=== PATIENT | male | born 1955 | race Caucasian/White ===

== ENCOUNTER 2016-11-01 11:08 | Emergency (ER) | payer BC ==
[~2016-11-01] VITALS: Ht 162.6 cm; Wt 72.6 kg
[2016-11-01 11:08] VITALS: BP_SYST 116
[~2016-11-01 11:08] MED LIST: LEVE500T13 PO; PHEN100C4 PO; THIA100T13 PO
[2016-11-01] MEDS: NACL 0.9% 1,000 ML IV ONE (11:51)
[2016-11-01 12:01] LABS: BASOPHILS # (AUTO) 0.1 K/uL (0.0-0.2); BASOPHILS % (AUTO) 1.1 % (0.0-2.0); EOSINOPHILS % (AUTO) 0.7 % (0.0-4.0); HEMATOCRIT 40.5 % (36-54); HEMOGLOBIN 13.7 g/dL (14.0-18.0); LYMPHOCYTES # (AUTO) 1.2 K/uL (1.0-5.5); LYMPHOCYTES % (AUTO) 21.3 % (20.5-51.5); MEAN CORPUSCULAR HEMOGLOBIN 34 pg (27-31); MEAN CORPUSCULAR HGB CONC 34 % (32-36); MEAN CORPUSCULAR VOLUME 99 fL (79.0-98.0); MONOCYTES # (AUTO) 0.4 K/uL (0.0-1.0); MONOCYTES % (AUTO) 6.7 % (1.7-9.3); NEUTROPHILS # (AUTO) 4.1 K/uL (1.8-7.7); NEUTROPHILS % (AUTO) 70.2 % (40.0-70.0); PLATELET COUNT (AUTO) 271 K/uL (130-430); RED BLOOD CELL COUNT(AUTO) 4.08 MIL/uL (4.2-6.2); RED CELL DISTRIBUTION WIDTH 12.7 % (9.0-15.0); WHITE BLOOD COUNT (AUTO) 5.8 K/uL (4.8-10.8)
[2016-11-01 12:06] LABS: CALCIUM 8.7 mg/dL (8.4-11.0); CREATININE 1.02 mg/dL (0.55-1.30); POTASSIUM 3.7 mmol/L (3.5-5.1)
[2016-11-01 12:09] LABS: PROTHROMBIN TIME 10.5 SECS (9.5-12.5)
[2016-11-01 12:11] LABS: ALBUMIN 3.5 g/dL (3.4-4.8); PHENYTOIN (DILANTIN) 24.9 ug/mL (10.0-20.0); TOTAL BILIRUBIN 0.2 mg/dL (0.0-1.0); TOTAL PROTEIN, SERUM 6.4 g/dL (6.4-8.3)
[2016-11-01 12:49] VITALS: BP_SYST 140
== END 2016-11-01 12:49 | disposition home or self-care (01) ==
LOC: SED 11:08
DX: G40.802 Other epilepsy, not intractable, without status epilepticus (principal); F10.129 Alcohol abuse with intoxication, unspecified; M79.672 Pain in left foot; M25.572 Pain in left ankle and joints of left foot; J44.9 Chronic obstructive pulmonary disease, unspecified; K21.9 Gastro-esophageal reflux disease without esophagitis
CPT/HCPCS: 36415; 73610; 73630; 80053; 80185; 82150; 83690; 85025; 85610; 85730; 96360; 99285; G0482; J7030

== ENCOUNTER 2018-03-12 17:53 | Emergency (ER) | payer BC ==
[~2018-03-12] VITALS: Ht 182.9 cm; Wt 63.5 kg
[~2018-03-12 17:53] MED LIST changes: -LEVE500T13 PO; +LEVE500T9 PO
[2018-03-12 18:26] VITALS: BP_SYST 124
--- NOTE | 2018-03-12 18:29 | NUR ---
Patient to ER bed 03 to gown for evaluation. Side rails up.
--- NOTE | 2018-03-12 18:32 | NUR ---
Patient brought in BLS complaining of right hip pain radiating down leg, generalized weakness and dizziness. Pain 8/10. History for Sciatica. Was seen and discharged at [facility]. Reports having seizures but has been seeing PMD. No other complaints/injuries per patient or as noted. Will continue to monitor.
--- NOTE | 2018-03-12 18:49 | NUR ---
ER Dr. Melvin at bedside examining patient.
[2018-03-12] MEDS ORDERED: KETOROLAC TROMETHAMINE 15 MG VIAL IVP ONE (19:00)
[2018-03-12] MEDS ORDERED: LORazepam 2 MG/ML VIAL (FOR ER USE) IVP ONE (19:00)
--- NOTE | 2018-03-12 19:33 | NUR ---
Pt is resting quietly in bed, no acute distress noted. Will continue to monitor.
[2018-03-12 19:44] LABS: BARBITURATE, URINE POSITIVE (NEG <=200); BENZODIAZEPINE, URINE NEGATIVE (NEG <=150); CANNABINOID, URINE NEGATIVE (NEG <=50); COCAINE, URINE NEGATIVE (NEG <=150); METHAMPHETAMINES SCREEN,URINE NEGATIVE (NEG <=500); OPIATE, URINE NEGATIVE (NEG <=100); PHENCYCLIDINE SCREEN,URINE NEGATIVE (NEG <=25); UR TRICYCLIC ANTIDEPRESSANTS NEGATIVE (NEG <=300); URINE AMPHETAMINE NEGATIVE (NEG <=500); URINE METHADONE NEGATIVE (NEG <=200); URINE OXYCODONE SCREEN NEGATIVE (NEG <=100); URINE PROPOXYPHENE SCREEN NEGATIVE (NEG <=300)
[2018-03-12 19:50] LABS: PHENYTOIN (DILANTIN) 20.1 ug/mL (10.0-20.0)
--- NOTE | 2018-03-12 20:00 | NUR ---
Pt is resting quietly in bed, no acute distress noted at this time. Will continue to monitor.
--- NOTE | 2018-03-12 21:36 | NUR ---
Pt is sleeping in bed, no acute distress noted. Will continue to monitor.
[2018-03-12 22:28] VITALS: BP_SYST 124
== END 2018-03-12 22:27 | disposition home or self-care (01) ==
LOC: SED 17:53
DX: G40.909 Epilepsy, unspecified, not intractable, without status epilepticus (principal); F10.10 Alcohol abuse, uncomplicated; K21.9 Gastro-esophageal reflux disease without esophagitis; J44.9 Chronic obstructive pulmonary disease, unspecified; R03.0 Elevated blood-pressure reading, without diagnosis of hypertension; Y90.6 Blood alcohol level of 120-199 mg/100 ml
CPT/HCPCS: 36415; 80185; 80307; 96374; 96375; 99283; G0482; J1885; J2060

== ENCOUNTER 2018-03-16 08:42 | Inpatient (IN) | payer BC ==
[~2018-03-16] VITALS: Ht 182.9 cm; Wt 63.5 kg
[2018-03-16 08:48] VITALS: BP_SYST 123
[2018-03-16] MEDS ORDERED: NACL 0.9% 1,000 ML IV ONE (08:59)
[2018-03-16] MEDS ORDERED: ONDANSETRON HCL 4 MG/2 ML VIAL IVP ONE (09:00)
[2018-03-16 09:28] LABS: HEMATOCRIT 46.7 % (36-54); HEMOGLOBIN 15.8 g/dL (14.0-18.0); RED BLOOD CELL COUNT(AUTO) 4.61 MIL/uL (4.2-6.2); WHITE BLOOD COUNT (AUTO) 8.6 K/uL (4.8-10.8)
[2018-03-16 09:29] LABS: BASOPHILS # (AUTO) 0.1 K/uL (0.0-0.2); BASOPHILS % (AUTO) 0.8 % (0.0-2.0); EOSINOPHILS # (AUTO) 0.1 K/uL (0.0-0.4); EOSINOPHILS % (AUTO) 1.3 % (0.0-4.0); LYMPHOCYTES # (AUTO) 0.9 K/uL (1.0-5.5); LYMPHOCYTES % (AUTO) 10.4 % (20.5-51.5); MEAN CORPUSCULAR HEMOGLOBIN 34 pg (27-31); MEAN CORPUSCULAR HGB CONC 34 % (32-36); MEAN CORPUSCULAR VOLUME 101 fL (79.0-98.0); MONOCYTES % (AUTO) 11.5 % (1.7-9.3); NEUTROPHILS # (AUTO) 6.5 K/uL (1.8-7.7); PLATELET COUNT (AUTO) 239 K/uL (130-430)
[2018-03-16] MEDS ORDERED: FOLIC ACID 1 MG, THIAMINE HCL 100 MG, MAGNESIUM SULFATE 1 GM, MVI 10 ML in NACL 0.9% 1,... IV ONE (09:30)
[2018-03-16 09:37] LABS: BILIRUBIN,URINE NEGATIVE (NEGATIVE); BLOOD, URINE NEGATIVE (NEGATIVE); CLARITY/URINE CLEAR (CLEAR); COLOR,URINE YELLOW (YELLOW); GLUCOSE,URINE NEGATIVE (NEGATIVE); KETONES,URINE NEGATIVE (NEGATIVE); LEUKOCYTE ESTERASE ,URINE NEGATIVE (NEGATIVE); NITRITE, URINE NEGATIVE (NEGATIVE); PH,URINE 5.5 (5.0-8.0); PROTEIN URINE NEGATIVE (NEGATIVE); UROBILINOGEN,URINE 0.2 (0.2-1.0)
[2018-03-16 10:01] LABS: BARBITURATE, URINE POSITIVE (NEG <=200); BENZODIAZEPINE, URINE NEGATIVE (NEG <=150); CANNABINOID, URINE NEGATIVE (NEG <=50); COCAINE, URINE NEGATIVE (NEG <=150); METHAMPHETAMINES SCREEN,URINE NEGATIVE (NEG <=500); OPIATE, URINE NEGATIVE (NEG <=100); PHENCYCLIDINE SCREEN,URINE NEGATIVE (NEG <=25); URINE AMPHETAMINE NEGATIVE (NEG <=500); URINE METHADONE NEGATIVE (NEG <=200); URINE OXYCODONE SCREEN NEGATIVE (NEG <=100); URINE PROPOXYPHENE SCREEN NEGATIVE (NEG <=300)
[2018-03-16 10:02] LABS: UR TRICYCLIC ANTIDEPRESSANTS NEGATIVE (NEG <=300)
[2018-03-16 10:05] LABS: ANION GAP 12 (5-15); CHLORIDE 100 mmol/L (98-107); GLUCOSE 100 mg/dL (70-99); POTASSIUM 3.5 mmol/L (3.5-5.1); SODIUM SERUM 138 mmol/L (136-145); UREA NITROGEN, BLOOD 13 mg/dL (8-21)
[2018-03-16 10:06] LABS: GFR AFRICAN AMERICAN 97 mL/min (>90)
[2018-03-16 10:09] LABS: ALANINE AMINOTRANSFERASE 34 U/L (12-78); ALBUMIN 3.9 g/dL (3.4-4.8); ALCOHOL, BLOOD 169 mg/dL (<10); AMYLASE 59 U/L (0-100); ASPARTATE AMINOTRANSFERASE 28 U/L (10-37); LIPASE 131 U/L (73-393); TOTAL BILIRUBIN 0.3 mg/dL (0.0-1.0)
[2018-03-16 10:14] LABS: INR 0.9 (0.80-1.20); PROTHROMBIN TIME 9.5 SECS (9.5-12.5)
[2018-03-16 11:09] LABS: ACETAMINOPHEN < 1 ug/mL (1-30)
[2018-03-16] MEDS ORDERED: LORazepam 2 MG/ML VIAL IVP PRN (13:45)
[2018-03-16 14:10] VITALS: BP_SYST 113
[2018-03-16] MEDS ORDERED: BANANA BAG 1 EA, FOLIC ACID 1 MG, THIAMINE HCL 100 MG, MAGNESIUM SULFATE 1 GM, MVI 10 M... IV SCH ×5 (15:00)
[2018-03-16 15:43] VITALS: BP_SYST 124
[2018-03-16] MEDS: D5/0.45 NS 1,000 ML IV SCH (16:03)
[2018-03-16 19:00] VITALS: BP_SYST 134
[2018-03-16 20:00] VITALS: BP_SYST 139
[2018-03-17] MEDS: D5/0.45 NS 1,000 ML IV SCH ×2 (03:05→13:32)
[2018-03-17 03:46] VITALS: BP_SYST 134
[2018-03-17 07:36] VITALS: BP_SYST 103
[2018-03-17] MEDS: BANANA BAG 1 EA, FOLIC ACID 1 MG, THIAMINE HCL 100 MG, MAGNESIUM SULFATE 1 GM, MVI 10 M... IV SCH ×5 (09:26)
[2018-03-17] MEDS ORDERED: PHENYTOIN 100 MG CAPSULE PO ONE (11:15)
[2018-03-17 12:44] VITALS: BP_SYST 117
[2018-03-17 15:44] VITALS: BP_SYST 138
[2018-03-17] MEDS: PHENYTOIN 100 MG CAPSULE PO SCH (21:15)
[2018-03-17 22:03] VITALS: BP_SYST 127
[2018-03-18] VITALS: BP_SYST 129
[2018-03-18] MEDS: D5/0.45 NS 1,000 ML IV SCH ×2 (02:49→09:30)
[2018-03-18 08:00] VITALS: BP_SYST 148
[2018-03-18] MEDS: BANANA BAG 1 EA, FOLIC ACID 1 MG, THIAMINE HCL 100 MG, MAGNESIUM SULFATE 1 GM, MVI 10 M... IV SCH ×5 (09:30)
[2018-03-18] MEDS: PHENYTOIN 100 MG CAPSULE PO SCH (09:30)
[2018-03-18 12:00] VITALS: BP_SYST 158
== END 2018-03-18 12:41 | disposition left against medical advice (07) | DRG 101 ==
LOC: SED 08:42 → STU 13:41 → SMU 03-17 10:36
PROVIDERS: ADMIT Internal Medicine Hospice and Palliative Medicine; ATTEND Internal Medicine Hospice and Palliative Medicine
DX: G40.509 Epileptic seizures related to external causes, not intractable, without status epilepticus (principal); F10.129 Alcohol abuse with intoxication, unspecified; Z53.21 Procedure and treatment not carried out due to patient leaving prior to being seen by health care provider; T42.0X5A Adverse effect of hydantoin derivatives, initial encounter; Z87.820 Personal history of traumatic brain injury; Y92.89 Other specified places as the place of occurrence of the external cause
CPT/HCPCS: 36415; 71045; 80053; 80185-TC; 80307; 81003; 82150-TC; 82550-TC; 83690-TC; 84484; 85025; 85610-TC; 85730-TC; 93005; 96361; 96374; 99285; G0378; G0480; G0482; J2405; J3411; J3475; J3490; J7030

== ENCOUNTER 2018-03-23 11:27 | Inpatient (IN) | payer BC ==
[~2018-03-23] VITALS: Ht 182.9 cm; Wt 59.1 kg
[~2018-03-23 11:27] MED LIST changes: -LEVE500T9 PO; -THIA100T13 PO
[2018-03-23] MEDS ORDERED: LORazepam 2 MG/ML VIAL (FOR ER USE) IVP ONE (11:30)
[2018-03-23 11:39] VITALS: BP_SYST 133
[2018-03-23 12:04] LABS: CREATININE 1.11 mg/dL (0.55-1.30); POTASSIUM 4.4 mmol/L (3.5-5.1)
[2018-03-23 12:10] LABS: ALBUMIN 3.4 g/dL (3.4-4.8); TOTAL BILIRUBIN 0.2 mg/dL (0.0-1.0)
[2018-03-23 13:15] LABS: BASOPHILS # (AUTO) 0.1 K/uL (0.0-0.2); BASOPHILS % (AUTO) 1.7 % (0.0-2.0); EOSINOPHILS # (AUTO) 0.1 K/uL (0.0-0.4); EOSINOPHILS % (AUTO) 0.8 % (0.0-4.0); HEMATOCRIT 39.4 % (36-54); LYMPHOCYTES # (AUTO) 1.4 K/uL (1.0-5.5); LYMPHOCYTES % (AUTO) 22.4 % (20.5-51.5); MEAN CORPUSCULAR HEMOGLOBIN 34 pg (27-31); MEAN CORPUSCULAR HGB CONC 33 % (32-36); MEAN CORPUSCULAR VOLUME 101 fL (79.0-98.0); MONOCYTES # (AUTO) 0.6 K/uL (0.0-1.0); NEUTROPHILS # (AUTO) 4.2 K/uL (1.8-7.7); NEUTROPHILS % (AUTO) 66.1 % (40.0-70.0); PLATELET COUNT (AUTO) 274 K/uL (130-430); RED BLOOD CELL COUNT(AUTO) 3.89 MIL/uL (4.2-6.2); RED CELL DISTRIBUTION WIDTH 12.2 % (9.0-15.0); WHITE BLOOD COUNT (AUTO) 6.4 K/uL (4.8-10.8)
[2018-03-23 13:28] LABS: PROTHROMBIN TIME 9.8 SECS (9.5-12.5)
[2018-03-23 14:34] LABS: BARBITURATE, URINE POSITIVE (NEG <=200); BENZODIAZEPINE, URINE NEGATIVE (NEG <=150); CANNABINOID, URINE NEGATIVE (NEG <=50); COCAINE, URINE NEGATIVE (NEG <=150); METHAMPHETAMINES SCREEN,URINE NEGATIVE (NEG <=500); OPIATE, URINE NEGATIVE (NEG <=100); PHENCYCLIDINE SCREEN,URINE NEGATIVE (NEG <=25); UR TRICYCLIC ANTIDEPRESSANTS NEGATIVE (NEG <=300); URINE AMPHETAMINE NEGATIVE (NEG <=500); URINE METHADONE NEGATIVE (NEG <=200); URINE OXYCODONE SCREEN NEGATIVE (NEG <=100); URINE PROPOXYPHENE SCREEN NEGATIVE (NEG <=300)
[2018-03-23] MEDS ORDERED: D5NS 1,000 ML IV SCH (15:45)
[2018-03-23] MEDS ORDERED: LORazepam 2 MG/ML VIAL IM PRN (16:00)
[2018-03-23 16:40] VITALS: BP_SYST 127
[2018-03-23] MEDS: BANANA BAG 1 EA, FOLIC ACID 1 MG, THIAMINE HCL 100 MG, MAGNESIUM SULFATE 1 GM, MVI 10 M... IV SCH ×5 (17:01)
[2018-03-23 19:49] VITALS: BP_SYST 134
[2018-03-23] MEDS: NACL 0.9% 1,000 ML IV SCH (20:43)
[2018-03-23] MEDS ORDERED: PHENYTOIN 100 MG CAPSULE PO ONE (23:55)
[2018-03-24 02:10] VITALS: BP_SYST 120
[2018-03-24 08:00] VITALS: BP_SYST 128
[2018-03-24] MEDS: NACL 0.9% 1,000 ML IV SCH (09:50)
[2018-03-24 12:00] VITALS: BP_SYST 120
[2018-03-24 16:00] VITALS: BP_SYST 107
[2018-03-24] MEDS: BANANA BAG 1 EA, FOLIC ACID 1 MG, THIAMINE HCL 100 MG, MAGNESIUM SULFATE 1 GM, MVI 10 M... IV SCH ×5 (16:09)
[2018-03-24 20:10] VITALS: BP_SYST 131
[2018-03-24] MEDS ORDERED: PHENYTOIN 100 MG CAPSULE PO SCH (21:00)
[2018-03-25] VITALS: BP_SYST 135
[2018-03-25] MEDS: NACL 0.9% 1,000 ML IV SCH (02:30)
[2018-03-25 07:55] VITALS: BP_SYST 138
[2018-03-25 10:54] VITALS: BP_SYST 138
[2018-03-25 11:38] VITALS: BP_SYST 136
== END 2018-03-25 11:30 | disposition home or self-care (01) | DRG 918 ==
LOC: SED 11:27 → SMU 15:45
PROVIDERS: ADMIT Internal Medicine Hospice and Palliative Medicine; ATTEND Internal Medicine Hospice and Palliative Medicine
DX: T42.3X1A Poisoning by barbiturates, accidental (unintentional), initial encounter (principal); F10.10 Alcohol abuse, uncomplicated; G40.909 Epilepsy, unspecified, not intractable, without status epilepticus; J44.9 Chronic obstructive pulmonary disease, unspecified; K21.9 Gastro-esophageal reflux disease without esophagitis; Y92.89 Other specified places as the place of occurrence of the external cause
CPT/HCPCS: 36415; 70450-TC; 71045; 80053; 80184-TC; 80185-TC; 80307; 82150-TC; 82962; 83690-TC; 84484; 85025; 85610-TC; 85730-TC; 87081; 96374; 99285; G0482; J2060; J3411; J3475; J3490; J7030; J7050

== ENCOUNTER 2018-05-29 09:12 | Emergency (ER) | payer BC ==
[~2018-05-29] VITALS: Ht 177.8 cm; Wt 68.0 kg
[2018-05-29 09:18] VITALS: BP_SYST 130
[2018-05-29] MEDS ORDERED: LORazepam 2 MG/ML VIAL (FOR ER USE) IM ONE (09:30)
[2018-05-29 10:33] LABS: BILIRUBIN,URINE NEGATIVE (NEGATIVE); BLOOD, URINE NEGATIVE (NEGATIVE); CLARITY/URINE CLEAR (CLEAR); COLOR,URINE YELLOW (YELLOW); GLUCOSE,URINE NEGATIVE (NEGATIVE); KETONES,URINE NEGATIVE (NEGATIVE); LEUKOCYTE ESTERASE ,URINE NEGATIVE (NEGATIVE); NITRITE, URINE NEGATIVE (NEGATIVE); PROTEIN URINE NEGATIVE (NEGATIVE); UROBILINOGEN,URINE 0.2 (0.2-1.0)
[2018-05-29 10:45] LABS: RED BLOOD CELL COUNT(AUTO) 4.29 MIL/uL (4.2-6.2); WHITE BLOOD COUNT (AUTO) 5.4 K/uL (4.8-10.8)
[2018-05-29 10:46] LABS: BASOPHILS % (AUTO) 1.3 % (0.0-2.0); EOSINOPHILS % (AUTO) 1.6 % (0.0-4.0); HEMATOCRIT 44.1 % (36-54); HEMOGLOBIN 14.8 g/dL (14.0-18.0); LYMPHOCYTES # (AUTO) 1.1 K/uL (1.0-5.5); LYMPHOCYTES % (AUTO) 21.2 % (20.5-51.5); MEAN CORPUSCULAR HEMOGLOBIN 34 pg (27-31); MEAN CORPUSCULAR HGB CONC 34 % (32-36); MEAN CORPUSCULAR VOLUME 103 fL (79.0-98.0); MONOCYTES % (AUTO) 9.5 % (1.7-9.3); NEUTROPHILS # (AUTO) 3.5 K/uL (1.8-7.7); NEUTROPHILS % (AUTO) 66.4 % (40.0-70.0); PLATELET COUNT (AUTO) 239 K/uL (130-430); RED CELL DISTRIBUTION WIDTH 13.5 % (9.0-15.0)
[2018-05-29 10:47] LABS: BASOPHILS # (AUTO) 0.1 K/uL (0.0-0.2); EOSINOPHILS # (AUTO) 0.1 K/uL (0.0-0.4); MONOCYTES # (AUTO) 0.5 K/uL (0.0-1.0)
[2018-05-29 10:52] LABS: BARBITURATE, URINE POSITIVE (NEG <=200); BENZODIAZEPINE, URINE NEGATIVE (NEG <=150); CANNABINOID, URINE NEGATIVE (NEG <=50); COCAINE, URINE NEGATIVE (NEG <=150); METHAMPHETAMINES SCREEN,URINE NEGATIVE (NEG <=500); OPIATE, URINE NEGATIVE (NEG <=100); PHENCYCLIDINE SCREEN,URINE NEGATIVE (NEG <=25); UR TRICYCLIC ANTIDEPRESSANTS NEGATIVE (NEG <=300); URINE AMPHETAMINE NEGATIVE (NEG <=500); URINE METHADONE NEGATIVE (NEG <=200); URINE OXYCODONE SCREEN NEGATIVE (NEG <=100); URINE PROPOXYPHENE SCREEN NEGATIVE (NEG <=300)
[2018-05-29 10:56] LABS: CALCIUM 8.6 mg/dL (8.4-11.0); CREATININE 0.98 mg/dL (0.55-1.30); POTASSIUM 4.2 mmol/L (3.5-5.1)
[2018-05-29 11:00] LABS: PROTHROMBIN TIME 10.5 SECS (9.5-12.5)
[2018-05-29 11:13] LABS: ALBUMIN 3.8 g/dL (3.4-4.8); TOTAL BILIRUBIN 0.3 mg/dL (0.0-1.0)
[2018-05-29 13:40] VITALS: BP_SYST 121
== END 2018-05-29 11:59 | disposition home or self-care (01) ==
LOC: MERGE 09:12 → SED 09:12
DX: F10.20 Alcohol dependence, uncomplicated (principal); F31.9 Bipolar disorder, unspecified; R03.0 Elevated blood-pressure reading, without diagnosis of hypertension; F17.200 Nicotine dependence, unspecified, uncomplicated; Y90.6 Blood alcohol level of 120-199 mg/100 ml
CPT/HCPCS: 36415; 70450; 71045; 80053; 80307; 81003; 83605; 85025; 85610; 87040; 93005; 96372; 99284; G0482; J2060

== ENCOUNTER 2019-08-04 16:02 | Emergency (ER) | payer BC, SELFPAY ==
[~2019-08-04] VITALS: Ht 182.9 cm; Wt 68.0 kg
[2019-08-04 16:10] VITALS: BP_SYST 137
[2019-08-04] MEDS ORDERED: NACL 0.9% 1,000 ML IV ONE (16:45)
[2019-08-04] MEDS ORDERED: KETOROLAC TROMETHAMINE 30 MG VIAL IVP ONE (16:45)
[2019-08-04 17:21] LABS: BASOPHILS # (AUTO) 0.1 K/uL (0.0-0.2); EOSINOPHILS # (AUTO) 0.2 K/uL (0.0-0.4); EOSINOPHILS % (AUTO) 2.3 % (0.0-4.0); HEMATOCRIT 42.8 % (36-54); HEMOGLOBIN 14.4 g/dL (14.0-18.0); LYMPHOCYTES # (AUTO) 2.7 K/uL (1.0-5.5); MEAN CORPUSCULAR HEMOGLOBIN 33 pg (27-31); MEAN CORPUSCULAR HGB CONC 34 % (32-36); MEAN CORPUSCULAR VOLUME 98 fL (79.0-98.0); MONOCYTES # (AUTO) 0.7 K/uL (0.0-1.0); MONOCYTES % (AUTO) 8.1 % (1.7-9.3); NEUTROPHILS # (AUTO) 4.5 K/uL (1.8-7.7); NEUTROPHILS % (AUTO) 55.6 % (40.0-70.0); PLATELET COUNT (AUTO) 271 K/uL (130-430); RED BLOOD CELL COUNT(AUTO) 4.37 MIL/uL (4.2-6.2); RED CELL DISTRIBUTION WIDTH 13.3 % (9.0-15.0); WHITE BLOOD COUNT (AUTO) 8.1 K/uL (4.8-10.8)
[2019-08-04 17:40] LABS: ANION GAP 9 (5-15); CALCIUM 8.2 mg/dL (8.4-11.0); CHLORIDE 105 mmol/L (98-107); CREATININE 1.11 mg/dL (0.55-1.30); GLUCOSE 84 mg/dL (70-99); SODIUM SERUM 142 mmol/L (136-145); UREA NITROGEN, BLOOD 13 mg/dL (8-21)
[2019-08-04 17:46] LABS: GFR AFRICAN AMERICAN 86 mL/min (>90)
[2019-08-04 17:48] LABS: ALANINE AMINOTRANSFERASE 26 U/L (12-78); ALBUMIN 3.6 g/dL (3.4-4.8); ALCOHOL, BLOOD 57 mg/dL (<10); ASPARTATE AMINOTRANSFERASE 19 U/L (10-37); LIPASE 134 U/L (73-393); TOTAL BILIRUBIN 0.2 mg/dL (0.0-1.0)
[2019-08-04 18:24] LABS: BILIRUBIN,URINE NEGATIVE (NEGATIVE); BLOOD, URINE NEGATIVE (NEGATIVE); CLARITY/URINE CLEAR (CLEAR); GLUCOSE,URINE NEGATIVE (NEGATIVE); KETONES,URINE NEGATIVE (NEGATIVE); LEUKOCYTE ESTERASE ,URINE NEGATIVE (NEGATIVE); NITRITE, URINE NEGATIVE (NEGATIVE); PROTEIN URINE NEGATIVE (NEGATIVE); UROBILINOGEN,URINE 0.2 (0.2-1.0)
[2019-08-04 18:28] LABS: COLOR,URINE STRAW (YELLOW)
[2019-08-04 18:34] LABS: BARBITURATE, URINE POSITIVE (NEG <=200); BENZODIAZEPINE, URINE NEGATIVE (NEG <=150); CANNABINOID, URINE NEGATIVE (NEG <=50); COCAINE, URINE NEGATIVE (NEG <=150); METHAMPHETAMINES SCREEN,URINE NEGATIVE (NEG <=500); OPIATE, URINE NEGATIVE (NEG <=100); PHENCYCLIDINE SCREEN,URINE NEGATIVE (NEG <=25); UR TRICYCLIC ANTIDEPRESSANTS NEGATIVE (NEG <=300); URINE AMPHETAMINE NEGATIVE (NEG <=500); URINE METHADONE NEGATIVE (NEG <=200); URINE OXYCODONE SCREEN NEGATIVE (NEG <=100); URINE PROPOXYPHENE SCREEN NEGATIVE (NEG <=300)
[2019-08-04 19:05] VITALS: BP_SYST 136
== END 2019-08-04 19:05 | disposition home or self-care (01) ==
LOC: SED 16:02
DX: R06.02 Shortness of breath (principal); F10.129 Alcohol abuse with intoxication, unspecified; J44.9 Chronic obstructive pulmonary disease, unspecified; K21.9 Gastro-esophageal reflux disease without esophagitis; F17.210 Nicotine dependence, cigarettes, uncomplicated; Z20.828 Contact with and (suspected) exposure to other viral communicable diseases
CPT/HCPCS: 36415; 71045; 80053; 80307; 81003; 83605; 83690; 83880; 84484; 85025; 86710; 87040; 87086; 93005; 96374; 99285; G0482; J1885; J7030; U0002

== ENCOUNTER 2020-10-13 10:14 | Inpatient (IN) | payer BC, SELFPAY ==
[~2020-10-13] VITALS: Ht 182.9 cm; Wt 68.0 kg
[2020-10-13 10:18] VITALS: BP_SYST 132
--- NOTE | 2020-10-13 10:23 | NUR ---
Patient to ER bed 3 to gown for evaluation. Side rails up. Report given to Meron Nj
[2020-10-13] MEDS ORDERED: NACL 0.9% 1,000 ML IV ONE (10:30)
[2020-10-13] MEDS ORDERED: LORazepam 2 MG/ML VIAL IVP ONE (10:30)
--- NOTE | 2020-10-13 10:34 | NUR ---
Pt BIBA after being found in his front yard by neighbors. Per ems pt was noted to be having a sezire x1 min. Pt is alert to self and place. Pt states he has history of seizures and takes Dilantin at home. Pt states he drank "a few shots" last night and he does not remember anything else. Pt has generalized weakness but able to move all extremities equal, Perrla, no slurred speech or facial droop noted.
--- NOTE | 2020-10-13 10:36 | NUR ---
Blood collected and sent to lab.
--- NOTE | 2020-10-13 10:36 | NUR ---
# 20 gauge angiocath placed to LFA. Use of asceptic technique. Opsite placed over site. Blood return noted. Blood for lab drawn from site. Flushed with 10 cc of normal saline. No evidence of infiltration noted. Patient tolerated well.
--- NOTE | 2020-10-13 10:37 | NUR ---
X-ray at bedside.
--- NOTE | 2020-10-13 10:45 | NUR ---
MICHELLE Cabrales at bedside examining patient.
--- NOTE | 2020-10-13 10:46 | NUR ---
pt taken to ct in stable condition.
[2020-10-13 10:50] LABS: BASOPHILS % (AUTO) 0.4 % (0.0-2.0); EOSINOPHILS # (AUTO) 0.1 K/uL (0.0-0.4); EOSINOPHILS % (AUTO) 1.7 % (0.0-4.0); HEMATOCRIT 42.9 % (36-54); HEMOGLOBIN 14.5 g/dL (14.0-18.0); LYMPHOCYTES # (AUTO) 1.8 K/uL (1.0-5.5); LYMPHOCYTES % (AUTO) 29.9 % (20.5-51.5); MEAN CORPUSCULAR HEMOGLOBIN 33 pg (27-31); MEAN CORPUSCULAR HGB CONC 34 % (32-36); MEAN CORPUSCULAR VOLUME 98 fL (79.0-98.0); MONOCYTES # (AUTO) 0.6 K/uL (0.0-1.0); MONOCYTES % (AUTO) 9.7 % (1.7-9.3); NEUTROPHILS # (AUTO) 3.5 K/uL (1.8-7.7); NEUTROPHILS % (AUTO) 58.3 % (40.0-70.0); PLATELET COUNT (AUTO) 261 K/uL (130-430); RED BLOOD CELL COUNT(AUTO) 4.37 MIL/uL (4.2-6.2); RED CELL DISTRIBUTION WIDTH 13.7 % (9.0-15.0)
[2020-10-13 10:51] LABS: CALCIUM 8.4 mg/dL (8.4-11.0); CREATININE 1.01 mg/dL (0.55-1.30)
--- NOTE | 2020-10-13 10:55 | NUR ---
IV FLUIDS INFUSING IV Ativan given per md order.
--- NOTE | 2020-10-13 10:55 | NUR ---
Pt back from CT in stable condition.
[2020-10-13 10:57] LABS: ALBUMIN 3.5 g/dL (3.4-4.8); TOTAL BILIRUBIN 0.2 mg/dL (0.0-1.0)
--- NOTE | 2020-10-13 11:16 | NUR ---
Pt voided 200 clear yellow urine in urinal.
[2020-10-13 11:45] LABS: BILIRUBIN,URINE NEGATIVE (NEGATIVE); BLOOD, URINE NEGATIVE (NEGATIVE); CLARITY/URINE CLEAR (CLEAR); COLOR,URINE YELLOW (YELLOW); GLUCOSE,URINE NEGATIVE (NEGATIVE); KETONES,URINE NEGATIVE (NEGATIVE); LEUKOCYTE ESTERASE ,URINE NEGATIVE (NEGATIVE); NITRITE, URINE NEGATIVE (NEGATIVE); PROTEIN URINE NEGATIVE (NEGATIVE); UROBILINOGEN,URINE 0.2 (0.2-1.0)
[2020-10-13 11:59] LABS: BARBITURATE, URINE POSITIVE (NEG <=200); BENZODIAZEPINE, URINE NEGATIVE (NEG <=150); CANNABINOID, URINE NEGATIVE (NEG <=50); COCAINE, URINE NEGATIVE (NEG <=150); METHAMPHETAMINES SCREEN,URINE NEGATIVE (NEG <=500); OPIATE, URINE NEGATIVE (NEG <=100); PHENCYCLIDINE SCREEN,URINE NEGATIVE (NEG <=25); UR TRICYCLIC ANTIDEPRESSANTS NEGATIVE (NEG <=300); URINE AMPHETAMINE NEGATIVE (NEG <=500); URINE METHADONE NEGATIVE (NEG <=200); URINE OXYCODONE SCREEN NEGATIVE (NEG <=100); URINE PROPOXYPHENE SCREEN NEGATIVE (NEG <=300)
--- NOTE | 2020-10-13 12:07 | NUR ---
Pt resting in bed, no complaints of chest pain or sob.
[2020-10-13] MEDS ORDERED: FOLIC ACID 1 MG, THIAMINE HCL 100 MG, MAGNESIUM SULFATE 1 GM, MVI 10 ML in NACL 0.9% 1,... IV ONE (12:15)
--- NOTE | 2020-10-13 12:27 | NUR ---
Unable to complete med req
[2020-10-13] MEDS ORDERED: THIAMINE HCL 100 MG, MAGNESIUM SULFATE 1 GM in NS 100 ML IV ONE (14:00)
[2020-10-13] MEDS ORDERED: FOLIC ACID 1 MG, MVI 10 ML in NACL 0.9% 1,000 ML IV ONE (14:00)
--- NOTE | 2020-10-13 14:00 | NUR ---
ADMISSION NOTE Received patient from ER via thiago, received report from Meron/ RN. Patient admitted with diagnosis of seizure disorder, ETOH. Patient oriented to hospital routine, call light, toileting and safety-patient verbalized understanding.
[2020-10-13 14:13] VITALS: BP_SYST 135
--- NOTE | 2020-10-13 14:15 | NUR ---
Patient will be admitted to care of [facility]. Admitted to tele unit. Will go to room 105-a. Belongings list completed. Complete and up to date summary report printed. SBAR report to be given at bedside with opportunity for questions.
--- NOTE | 2020-10-13 16:10 | NUR ---
CONSULTATION PAGED/CALLED Reason for Consultation: [] SEIZURES Person Who was Notified: [] DR LÓPEZ Consulting Physician: [] DR LÓPEZ MEDIA SERVICES DIRECTOR FOR Lew SZYMANSKI Licensed Staff Mft Specialty: [] NEURO Ordering Physician: [] DR Johann DURON
--- NOTE | 2020-10-13 16:33 | NUR ---
Scheduled IV medications given per order. Patient resting quietly in bed with no distress noted. Patient stable.
[2020-10-13 16:35] VITALS: BP_SYST 135
[2020-10-13 16:49] VITALS: BP_SYST 93
[2020-10-13] MEDS ORDERED: FOLIC ACID 1 MG, THIAMINE HCL 100 MG, MAGNESIUM SULFATE 1 GM, MVI 10 ML in NACL 0.9% 1,... IV SCH (17:15)
[2020-10-13] MEDS ORDERED: ONDANSETRON HCL 4 MG/2 ML VIAL IVP PRN (17:15)
[2020-10-13] MEDS ORDERED: ACETAMINOPHEN 325 MG TABLET PO PRN ×2 (17:15→17:30)
[2020-10-13] MEDS ORDERED: NALOXONE HCL 0.4 MG/ML AMP (NARCAN) IVP PRN ×2 (17:15)
[2020-10-13] MEDS ORDERED: HYDROcodone/ACETAMIN 10-325 MG TAB PO PRN (17:15)
[2020-10-13] MEDS ORDERED: LORazepam 2 MG/ML VIAL IVP PRN (17:15)
[2020-10-13] MEDS ORDERED: HYDROcodone/ACETAMIN 5-325 MG TAB (NORCO/ VICODIN) PO PRN (17:15)
--- NOTE | 2020-10-13 18:24 | NUR ---
Patient eating dinner at this time. Patient stable since transfer to unit.
--- NOTE | 2020-10-13 19:15 | NUR ---
OPENING NOTES: Received patient report from morning shift RN. Patient on bed, AAOx4, breathing evenly and nonlabored on room air, HOB elevated. Patient has IV 20G on left forearm, patent, benign and flushing. IVF running, patient tolerating it well. Seizure pads in place. Bed armed, locked, and at lowest position. Educated patient on plan of care, fall/safety/seizure precautions, call light system. Patient verbalized understanding and returned demonstration on use.
[2020-10-13 20:00] VITALS: BP_SYST 133
[2020-10-13] MEDS ORDERED: chlordiazePOXIDE HCL 25 MG CAPSULE ONE (20:18)
[2020-10-13] MEDS: chlordiazePOXIDE HCL 10 MG CAPSULE PO SCH (20:23)
[2020-10-13] MEDS: NORMAL SALINE 5 ML DISP.SYRIN IVF SCH ×2 (20:24→20:25)
[2020-10-13] MEDS ORDERED: chlordiazePOXIDE HCL 25 MG CAPSULE PO SCH (21:00)
[2020-10-13] MEDS ORDERED: PHENYTOIN 100 MG CAPSULE PO SCH (21:00)
[2020-10-14] VITALS (7 sets, daily range): BP systolic 98–132
[2020-10-14] MEDS: NORMAL SALINE 5 ML DISP.SYRIN IVF SCH ×3 (06:00→13:20)
--- NOTE | 2020-10-14 06:26 | NUR ---
CLOSING NOTE PATIENT IN BED, ASLEEP AT THIS TIME, NO S/S OF ACUTE DISTRESS NOTED. BREATHING EVEN AND UNLABORED. IV SITE PATENT, NO SIGNS OF INFILTRATION OR INFECTION NOTED. ALL NEEDS MET THROUGHOUT SHIFT. FALL, SAFETY, AND SEIZURE PRECAUTIONS MAINTAINED THROUGHOUT SHIFT. WILL CONTINUE TO MONITOR UNTIL PATIENT CARE IS ENDORSED TO ONCOMING DAYSHIFT NURSE.
--- NOTE | 2020-10-14 07:15 | NUR ---
D/C Patient Patient given medication reconciliation form and D/C instructions. Exit Care provided. Patient verbalized understanding. MD discussed with patient the results and treatment provided. Ambulatory with steady gait for discharge to home. Patient in stable condition, ID band removed. IV catheter removed, intact and dressing applied, no active bleeding. Rx of Dilantin given. Patient educated on pain management. All belongings sent with patient. Addendum: 10/15/20 at 0657 by Frank Lawrence RN PATIENT LEFT @1915PM
--- NOTE | 2020-10-14 07:35 | NUR ---
OPENING NOTES: RECEIVED REPORT FROM CATHETER FINISHER AND INSPECTOR NURSE. PATIENT IS AWAKE LAYING DOWN IN BED. TOLERATED OXYGEN ON ROOM AIR WITH NO DISTRESS NOTED. IV LINE PATENT AND INTACT WITH NO INFILTRATION NOTED. PATIENT STABLE AT THIS TIME. SAFETY, FALL, SEIZURE, AND ASPIRATION PRECAUTIONS ARE IN PLACE. BED LOCKED IN LOWEST POSITION AND CALL LIGHT IN REACH. WILL CONTINUE TO MONITOR PATIENT FOR ANY CHANGES.
[2020-10-14 08:19] LABS: BASOPHILS % (AUTO) 0.7 % (0.0-2.0); EOSINOPHILS # (AUTO) 0.1 K/uL (0.0-0.4); HEMATOCRIT 39.8 % (36-54); HEMOGLOBIN 13.5 g/dL (14.0-18.0); LYMPHOCYTES # (AUTO) 1.8 K/uL (1.0-5.5); LYMPHOCYTES % (AUTO) 25.9 % (20.5-51.5); MEAN CORPUSCULAR HEMOGLOBIN 33 pg (27-31); MEAN CORPUSCULAR HGB CONC 34 % (32-36); MEAN CORPUSCULAR VOLUME 98 fL (79.0-98.0); MONOCYTES # (AUTO) 0.7 K/uL (0.0-1.0); MONOCYTES % (AUTO) 10.1 % (1.7-9.3); NEUTROPHILS # (AUTO) 4.2 K/uL (1.8-7.7); NEUTROPHILS % (AUTO) 61.3 % (40.0-70.0); PLATELET COUNT (AUTO) 232 K/uL (130-430); RED BLOOD CELL COUNT(AUTO) 4.07 MIL/uL (4.2-6.2); RED CELL DISTRIBUTION WIDTH 13.8 % (9.0-15.0); WHITE BLOOD COUNT (AUTO) 6.8 K/uL (4.8-10.8)
[2020-10-14] MEDS: chlordiazePOXIDE HCL 10 MG CAPSULE PO SCH ×2 (08:28→15:32)
[2020-10-14 08:41] LABS: CALCIUM 8.1 mg/dL (8.4-11.0); CREATININE 0.99 mg/dL (0.55-1.30); PHOSPHORUS 3.6 mg/dL (2.7-4.5); POTASSIUM 3.9 mmol/L (3.5-5.1)
[2020-10-14] MEDS ORDERED: FOLIC ACID 1 MG TABLET PO SCH (09:00)
[2020-10-14] MEDS ORDERED: MULTIVITAMINS TAB 1 TABLET PO SCH (09:00)
[2020-10-14] MEDS ORDERED: THIAMINE HCL 100 MG TABLET PO SCH (09:00)
--- NOTE | 2020-10-14 09:18 | NUR ---
Nutrition Update Brandin Scale 14 noted. Pt admitted for seizure disorder, ethanol alcohol. Diet: regular BMI: 20.3 kg/m2 RD to follow per nutrition care standards.
[2020-10-14 09:28] LABS: PHENYTOIN (DILANTIN) 18.5 ug/mL (10.0-20.0)
[2020-10-14] MEDS ORDERED: PHENYTOIN 100 MG/4 ML UDC (DILANTIN) PO ONE (10:00)
[2020-10-14] MEDS ORDERED: PHEN100C4 PO (10:51)
[2020-10-14] MEDS ORDERED: THIAMINE HCL 100 MG, MAGNESIUM SULFATE 1 GM in NS 100 ML IV SCH (14:00)
--- NOTE | 2020-10-14 14:24 | NUR ---
Case mgt:Case mgt: faxed MD orders for dc planning to [facility] and LVM for Kimberly ,business case analyst for [employer]([facility]) at [phone]--per [employer], that's the cm on-call for this weekend.
[2020-10-14] MEDS ORDERED: FOLIC ACID 1 MG, MVI 10 ML in NACL 0.9% 1,000 ML IV SCH (16:00)
--- NOTE | 2020-10-14 16:08 | NUR ---
ABRAM GUALLPA WITH [place], PATIENT CAN BE DISCHARGE HOME ONCE CLEARED BY NEURO. TERRY VALVERDE WILL FOLLOW UP 10/15 OR 10/16 RE HOME HEALTH ORDER BY
--- NOTE | 2020-10-14 16:12 | NUR ---
nursing for med rec received, will arranged. Patient will be called at home by home health agency on Friday. [employer] Tour Guide [phone]
--- NOTE | 2020-10-14 16:18 | NUR ---
NEUROLOGY CLEARANCE SW DR LÓPEZ. PER , HE SW DR DURON THIS AM AND CLEARED THE PATIENT FOR DISCHARGE
--- NOTE | 2020-10-14 16:21 | NUR ---
P.T. NOTES P.T. EVAL COMPLETED; REFER TO EVAL FOR DETAILS.
--- NOTE | 2020-10-14 18:30 | NUR ---
CLOSING NOTES: PATIENT IS AWAKE LAYING DOWN IN BED. TOLERATED OXYGEN ON ROOM AIR WITH NO DISTRESS NOTED. IV LINE PATENT AND INTACT WITH NO INFILTRATION NOTED. PATIENT STABLE AT THIS TIME. SAFETY, FALL, SEIZURE, AND ASPIRATION PRECAUTIONS REMAINED IN PLACE. BED LOCKED IN LOWEST POSITION AND CALL LIGHT IN REACH. WILL ENDORSE PATIENT CARE TO ONCOMING GUEST RELATIONS OFFICER NURSE.
[2020-10-14] MEDS ORDERED: PHENYTOIN 100 MG CAPSULE PO SCH (21:00)
--- NOTE | 2020-10-22 21:03 | NUR ---
PATIENT WAS DISCHARGE ON 10/14/2020 HOME WITH HOME HEALTHCARE SERVICE DISPOSITION NUMBER [id number] CHANGED TO O6
== END 2020-10-14 19:22 | disposition home health service (06) | DRG 101 ==
LOC: SED 10:14 → STU 12:10
PROVIDERS: ADMIT Preventive Medicine Preventive Medicine/Occupational Environmental Medicine; ATTEND Preventive Medicine Preventive Medicine/Occupational Environmental Medicine
DX: G40.909 Epilepsy, unspecified, not intractable, without status epilepticus (principal); F10.139 Alcohol abuse with withdrawal, unspecified; Y90.9 Presence of alcohol in blood, level not specified; J44.9 Chronic obstructive pulmonary disease, unspecified; M94.0 Chondrocostal junction syndrome [Tietze]; K21.9 Gastro-esophageal reflux disease without esophagitis; I10 Essential (primary) hypertension; Z20.822 Contact with and (suspected) exposure to COVID-19; F12.90 Cannabis use, unspecified, uncomplicated; Z72.0 Tobacco use; Z87.820 Personal history of traumatic brain injury
CPT/HCPCS: 36415; 70450-TC; 71045; 76376; 80048; 80053; 80185; 80307; 81003; 83735; 84100; 84484; 85025; 93005; 96361; 96374; 97112-GP; 99285; G0378; J2060; J3411; J3475; J3490; J7030

== ENCOUNTER 2021-08-14 15:19 | Emergency (ER) | payer BC ==
[~2021-08-14] VITALS: Ht 172.7 cm; Wt 68.0 kg
--- NOTE | 2021-08-14 15:19 | NUR ---
Placed in room 01 . Placed on concrete batch plant operator, blood pressure machine and pulse oximeter. To gown for exam. will assume all care of patient
--- NOTE | 2021-08-14 15:20 | NUR ---
Patient brought in BLS from home found on floor unresponsive. Initial report from EMS was patient was ETOH. Patient upon not responding to sternal rub and is non verbal at this time. Unknown HX, SX or MEDS at this time. VSS.
--- NOTE | 2021-08-14 15:23 | NUR ---
ER at bedside examining patient.
[2021-08-14 15:25] VITALS: BP_SYST 133
--- NOTE | 2021-08-14 15:25 | NUR ---
# 18 gauge angiocath placed to RAC. Use of asceptic technique. Opsite placed over site. Blood return noted. Blood for lab drawn from site. Flushed with 10 cc of normal saline. No evidence of infiltration noted. Patient tolerated well.
--- NOTE | 2021-08-14 15:30 | NUR ---
# 20 gauge angiocath placed to LEFT HAND. Use of asceptic technique. Opsite placed over site. Blood return noted. Flushed with 10 cc of normal saline. No evidence of infiltration noted. Patient tolerated well.
--- NOTE | 2021-08-14 15:40 | NUR ---
# 16 FR In and Out catheter with use of sterile technique. Immediate return of 250ml clear yellow urine noted. Urine sample collected and sent to lab. Pt tolerated procedure well Patient unable to toilet self.
[2021-08-14 15:49] LABS: BASOPHILS # (AUTO) 0.1 K/uL (0.0-0.2); BASOPHILS % (AUTO) 1.5 % (0.0-2.0); EOSINOPHILS # (AUTO) 0.3 K/uL (0.0-0.4); EOSINOPHILS % (AUTO) 4.3 % (0.0-4.0); HEMATOCRIT 45.2 % (36-54); HEMOGLOBIN 15.4 g/dL (14.0-18.0); LYMPHOCYTES # (AUTO) 2.1 K/uL (1.0-5.5); LYMPHOCYTES % (AUTO) 35.2 % (20.5-51.5); MEAN CORPUSCULAR HEMOGLOBIN 33 pg (27-31); MEAN CORPUSCULAR HGB CONC 34 % (32-36); MEAN CORPUSCULAR VOLUME 98 fL (79.0-98.0); MONOCYTES # (AUTO) 0.4 K/uL (0.0-1.0); MONOCYTES % (AUTO) 7.2 % (1.7-9.3); NEUTROPHILS # (AUTO) 3.1 K/uL (1.8-7.7); NEUTROPHILS % (AUTO) 51.8 % (40.0-70.0); PLATELET COUNT (AUTO) 212 K/uL (130-430); RED BLOOD CELL COUNT(AUTO) 4.63 MIL/uL (4.2-6.2)
[2021-08-14 15:49] LABS: BILIRUBIN,URINE NEGATIVE (NEGATIVE); CLARITY/URINE CLEAR (CLEAR); COLOR,URINE YELLOW (YELLOW); GLUCOSE,URINE NEGATIVE (NEGATIVE); KETONES,URINE NEGATIVE (NEGATIVE); LEUKOCYTE ESTERASE ,URINE NEGATIVE (NEGATIVE); NITRITE, URINE NEGATIVE (NEGATIVE); PROTEIN URINE NEGATIVE (NEGATIVE); UROBILINOGEN,URINE 0.2 (0.2-1.0)
[2021-08-14 15:54] LABS: BLOOD, URINE TRACE (NEGATIVE)
[2021-08-14 15:56] LABS: BACTERIA,URINE None Seen /HPF (None Seen); BARBITURATE, URINE POSITIVE (NEG <=200); BENZODIAZEPINE, URINE NEGATIVE (NEG <=150); CANNABINOID, URINE NEGATIVE (NEG <=50); COCAINE, URINE NEGATIVE (NEG <=150); METHAMPHETAMINES SCREEN,URINE NEGATIVE (NEG <=500); MUCUS,URINE None Seen /LPF (None Seen); OPIATE, URINE NEGATIVE (NEG <=100); PHENCYCLIDINE SCREEN,URINE NEGATIVE (NEG <=25); RBC,URINE 0-3 /HPF (0-3); UR TRICYCLIC ANTIDEPRESSANTS NEGATIVE (NEG <=300); URINE AMPHETAMINE NEGATIVE (NEG <=500); URINE METHADONE NEGATIVE (NEG <=200); URINE OXYCODONE SCREEN NEGATIVE (NEG <=100); URINE PROPOXYPHENE SCREEN NEGATIVE (NEG <=300); WBC,URINE 0-3 /HPF (0-3)
--- NOTE | 2021-08-14 16:00 | NUR ---
Swabbed for COVID, sent to lab.
--- NOTE | 2021-08-14 16:02 | NUR ---
patient off unit to ct scan with BERTHA Brizuela
[2021-08-14 16:08] LABS: ANION GAP 10 (5-15); CALCIUM 7.9 mg/dL (8.4-11.0); CHLORIDE 103 mmol/L (98-107); CREATININE 1.08 mg/dL (0.55-1.30); GLUCOSE 80 mg/dL (70-99); POTASSIUM 3.7 mmol/L (3.5-5.1); SODIUM SERUM 139 mmol/L (136-145); UREA NITROGEN, BLOOD 18 mg/dL (8-21)
--- NOTE | 2021-08-14 16:11 | NUR ---
patient returned from ct scan. vss
[2021-08-14 16:12] LABS: GFR AFRICAN AMERICAN 88 mL/min (>90)
[2021-08-14 16:14] LABS: ALANINE AMINOTRANSFERASE 21 U/L (12-78); ALBUMIN 3.4 g/dL (3.4-4.8); ALCOHOL, BLOOD 224 mg/dL (<10); ASPARTATE AMINOTRANSFERASE 13 U/L (10-37); PHENYTOIN (DILANTIN) 19.6 ug/mL (10.0-20.0); TOTAL BILIRUBIN 0.1 mg/dL (0.0-1.0)
[2021-08-14 17:58] VITALS: BP_SYST 102
--- NOTE | 2021-08-14 17:58 | NUR ---
Patient given written and verbal discharge instructions and verbalizes understanding. ER MD discussed with patient the results and treatment provided. Patient in stable condition. ID arm band removed. IV catheter removed intact and dressing applied, no active bleeding. Patient educated on pain management and to follow up with PMD. Pain Scale 0/10 Opportunity for questions provided and answered.
== END 2021-08-14 17:58 | disposition home or self-care (01) ==
LOC: SED 15:19
DX: F10.129 Alcohol abuse with intoxication, unspecified (principal); Y90.6 Blood alcohol level of 120-199 mg/100 ml; R56.9 Unspecified convulsions; I10 Essential (primary) hypertension; K21.9 Gastro-esophageal reflux disease without esophagitis; Z20.822 Contact with and (suspected) exposure to COVID-19
CPT/HCPCS: 36415; 70450; 71045; 72125; 76376; 80053; 80185; 80307; 81000; 84484; 85025; 87426; 93005; 99285; G0482

== ENCOUNTER 2021-09-17 10:04 | Observation (INO) | payer BC ==
[~2021-09-17] VITALS: Ht 177.8 cm; Wt 81.6 kg
--- NOTE | 2021-09-17 10:07 | NUR ---
pt transferred to bed [address] [facility] montalvo evaluating pt at bedside.
[2021-09-17 10:20] VITALS: BP_SYST 121
--- NOTE | 2021-09-17 10:26 | NUR ---
Sheron correia in ED - 09/17/21 at 1033 by [email or web address] pt transferred to bed 1 from amish montalvo evaluating pt at bedside.
--- NOTE | 2021-09-17 10:30 | NUR ---
66yo m biba for unwitnessed seizure a few mins ago. pt is aox3, gcs 15. not in distress. no active seizure at this time. normal rate regular rhythm. clear breath sounds. seizure pads secured on both siderails. hob elevated. both siderails up. ermd made aware of pt status.
[2021-09-17 10:53] LABS: CALCIUM 8.8 mg/dL (8.4-11.0); CREATININE 1.28 mg/dL (0.55-1.30); POTASSIUM 4.1 mmol/L (3.5-5.1)
[2021-09-17 10:55] LABS: BASOPHILS # (AUTO) 0.1 K/uL (0.0-0.2); BASOPHILS % (AUTO) 0.9 % (0.0-2.0); EOSINOPHILS # (AUTO) 0.1 K/uL (0.0-0.4); EOSINOPHILS % (AUTO) 1.4 % (0.0-4.0); HEMATOCRIT 44.7 % (36-54); LYMPHOCYTES # (AUTO) 0.9 K/uL (1.0-5.5); LYMPHOCYTES % (AUTO) 8.5 % (20.5-51.5); MEAN CORPUSCULAR HEMOGLOBIN 33 pg (27-31); MEAN CORPUSCULAR HGB CONC 34 % (32-36); MEAN CORPUSCULAR VOLUME 98 fL (79.0-98.0); MONOCYTES # (AUTO) 0.7 K/uL (0.0-1.0); MONOCYTES % (AUTO) 6.6 % (1.7-9.3); NEUTROPHILS # (AUTO) 8.5 K/uL (1.8-7.7); NEUTROPHILS % (AUTO) 82.6 % (40.0-70.0); PLATELET COUNT (AUTO) 209 K/uL (130-430); RED BLOOD CELL COUNT(AUTO) 4.58 MIL/uL (4.2-6.2); RED CELL DISTRIBUTION WIDTH 14.4 % (9.0-15.0); WHITE BLOOD COUNT (AUTO) 10.3 K/uL (4.8-10.8)
[2021-09-17 10:58] LABS: ALBUMIN 3.5 g/dL (3.4-4.8); PHENYTOIN (DILANTIN) 16.5 ug/mL (10.0-20.0); TOTAL BILIRUBIN 0.3 mg/dL (0.0-1.0)
--- NOTE | 2021-09-17 11:45 | NUR ---
COVID SWAB DONE. WALKED TO LAB.
[2021-09-17] MEDS ORDERED: PHEN50TA PO (11:48)
[2021-09-17] MEDS ORDERED: PHENYTOIN 100 MG CAPSULE PO ONE (12:15)
[2021-09-17] MEDS ORDERED: ACETAMINOPHEN 325 MG TABLET PO PRN (14:00)
[2021-09-17] MEDS ORDERED: ONDANSETRON HCL 4 MG/2 ML VIAL IVP PRN (14:00)
[2021-09-17] MEDS ORDERED: MORPHINE 2 MG/ML INJ. SYRINGE IVP PRN (14:00)
--- NOTE | 2021-09-17 16:45 | NUR ---
Admit bed requested Patient will be admitted to care of . Admitted to TELE unit. Diagnosis SEIZURE Inpatient (Yes or No) YES Observation (Yes or No) NO Orientation concerns or request close to nursing station (Yes or No) NO Covid Status NEGATIVE On vent or bipap NO Isolation requirements NONE Needs a sitter NO From Home (Yes or if No enter name of facility) YES Requires Dialysis (Yes or No) NO Med Rec Completed (Yes of No) YES
--- NOTE | 2021-09-17 19:11 | NUR ---
REPORT GIVEN TO ANNABELLE CHOWDHURY. ALL CARES TRANSFERRED AT THIS TIME.
--- NOTE | 2021-09-17 19:37 | NUR ---
Received report from Donna RN Pt resting comfortably in bed AOX4 VSS Able to make needs known Will continue to monitor
--- NOTE | 2021-09-17 22:22 | NUR ---
Pt admitted to tele 113A Belongings list completed. Complete and up to date summary report printed. SBAR report to be given at bedside with opportunity for questions.
[2021-09-18] VITALS (8 sets, daily range): BP systolic 90–124
[2021-09-18 06:17] LABS: BASOPHILS % (AUTO) 0.6 % (0.0-2.0); EOSINOPHILS # (AUTO) 0.2 K/uL (0.0-0.4); EOSINOPHILS % (AUTO) 3.5 % (0.0-4.0); HEMATOCRIT 40.6 % (36-54); LYMPHOCYTES # (AUTO) 1.5 K/uL (1.0-5.5); LYMPHOCYTES % (AUTO) 23.8 % (20.5-51.5); MEAN CORPUSCULAR HEMOGLOBIN 33 pg (27-31); MEAN CORPUSCULAR HGB CONC 35 % (32-36); MEAN CORPUSCULAR VOLUME 96 fL (79.0-98.0); MONOCYTES # (AUTO) 0.7 K/uL (0.0-1.0); MONOCYTES % (AUTO) 11.5 % (1.7-9.3); NEUTROPHILS # (AUTO) 3.7 K/uL (1.8-7.7); NEUTROPHILS % (AUTO) 60.6 % (40.0-70.0); PLATELET COUNT (AUTO) 218 K/uL (130-430); RED BLOOD CELL COUNT(AUTO) 4.23 MIL/uL (4.2-6.2); RED CELL DISTRIBUTION WIDTH 13.9 % (9.0-15.0); WHITE BLOOD COUNT (AUTO) 6.1 K/uL (4.8-10.8)
[2021-09-18 06:36] LABS: CALCIUM 8.6 mg/dL (8.4-11.0); PHOSPHORUS 3.6 mg/dL (2.7-4.5); POTASSIUM 4.2 mmol/L (3.5-5.1)
[2021-09-18] MEDS: PHENYTOIN 100 MG CAPSULE PO SCH (08:59)
[2021-09-18] MEDS ORDERED: LEVE500T21 PO (09:59)
--- NOTE | 2021-09-18 15:04 | NUR ---
P.T. NOTES P.T. EVAL COMPLETED; REFER TO EVAL FOR DETAILS.
--- NOTE | 2021-09-18 19:29 | NUR ---
Dr wolf was here and seen and spoke with pt, cleared patient to go home. said he spoke with pt's brandyn and also with dr barnes.
--- NOTE | 2021-09-18 19:50 | NUR ---
PM ASSESSMENT; -Pt is a/ox4, resting in bed comfortably. Pt denies any chest pain,pain,sob,or any acute distress. IV site infiltrated, will start new IV site. There is an order to discharge patient, will call Dr. Cavanaugh if pt is cleared to be discharge tonight. Discussed poc,all safety measures, pt verbalized understanding. instructed & educated safety measures, pt is a/ox4,able to use call light for assistance or if experiencing any pain or acute distress. call light w/in reach,side rails x3, bed alarmed.
--- NOTE | 2021-09-18 20:01 | NUR ---
NOTES; SPOKE WITH Lew GORDON (neuro MD) stated," patient is cleared to be discharge home and I spoke with his about it and she is ok for him to go home."
--- NOTE | 2021-09-18 20:05 | NUR ---
NOTES; CALLED [facility] () [phone], NO ANSWER, LEFT MESSAGE AND PHONE NUMBER FOR TO CALL BACK REGARDING MD ORDERED TO DISCHARGE PT HOME TONIGHT.
[2021-09-18] MEDS: levETIRAcetam 500 MG TABLET PO SCH (20:26)
--- NOTE | 2021-09-18 21:01 | NUR ---
FAMILY CALLED: CALLED AND LEFT MESSAGE FOR [facility] ( 2 ND CALL) ON [phone] , TO CALL BACK ON [phone]. TO NOTIFY THE DC ORDER .
--- NOTE | 2021-09-18 21:40 | NUR ---
NOTES; CLARIFICATION DISCHARGE ORDER -NOTIFIED DR. MERAZ THAT [facility]- SAID THAT SHE SPOKE WITH MD EARLIER THAT PT WILL STAY TONIGHT TO MONITOR NEW SEIZURE MEDICATION. MD STATED,"YES, I DID TOLD HER THAT, BUT I CALLED AND SPOKE WITH PMD AFTERWARD AND HE IS OKAY TO BE DISCHARGE TONIGHT." WILL CALL [facility]- TO INFORM REGARDING CLARIFICATION OF DISCHARGE TONIGHT.
--- NOTE | 2021-09-18 21:54 | NUR ---
NOTES; CALLED REGARDING HOLD DISCHARGE TONIGHT UNTIL 1000AM TOMORROW -eRa CALLED AND NOTIFIED DR. DE LUNA REGARDING DISCHARGE TONIGHT. NOTIFIED THAT PTS WAS FINALLY CALLED BACK AND PER HER DR MERAZ CALLED HER AROUND 7 PM AND TOLD HER THAT PT WILL BE MONITORING HERE TONIGHT FOR THE NEW SEIZURE MEDICATION .ALSO NOTIFIED THAT PTS GENO STATED HER SON DANIEL WILL PICK HIM UP AROUND 10 AM TOMORROW . STATED OK TO DC PT IN THE MORNING .
--- NOTE | 2021-09-18 22:08 | NUR ---
NOTES; CELIO-SON CALLED BACK -INFORMED CELIO THAT HIS DAD'S FELL DUE TO CONFUSION AND REDNESS AND SCRATCH ON POSTERIOR OF THORACIC AND BLEEDING FROM IV SITE THAT PT PULLED OUT. ALSO, TOLD SON THAT NOTIFIED MD AND MD ORDERED JUST TO MONITOR PT. SON STATED,"IT'S OK, I KNOW HE IS CONFUSED."
--- NOTE | 2021-09-18 23:10 | NUR ---
NOTES; INSERT NEW IV SITE -Started new IV site by Daniel on rt hand #22, patent, good blood returns noted, attempted x2, secured with tape and wrapped with kerlix.
--- NOTE | 2021-09-19 00:22 | NUR ---
ROUNDS; -Pt is asleep. NO s/s any pain,sob,or any acute distress noted. Bed alarmed, side rails x2, call light w/in reach. Cont to monitor pt.
--- NOTE | 2021-09-19 02:56 | NUR ---
ROUNDS; -Pt is still asleep. NO s/s any pain,sob,or any acute distress noted. Bed alarmed, side rails x2, call light w/in reach. Cont to monitor pt.
--- NOTE | 2021-09-19 05:39 | NUR ---
ROUNDS; -Pt is still asleep. NO s/s any pain,sob,or any acute distress noted. Bed alarmed, side rails x2, call light w/in reach. Cont to monitor pt.
--- NOTE | 2021-09-19 06:59 | NUR ---
CLOSING NOTES; Pt is resting in bed comfortably. Pt denies any chest pain,pain,sob,or any acute distress. IV site of rt hand patent drsg cdi. call light w/in reach,side rails x3, bed alarmed. Will endorse to next nurse to cont care.
[2021-09-19 08:00] VITALS: BP_SYST 101
[2021-09-19] MEDS: levETIRAcetam 500 MG TABLET PO SCH (08:36)
[2021-09-19 08:43] VITALS: BP_SYST 101
[2021-09-19] MEDS: PHENYTOIN 100 MG CAPSULE PO SCH (08:52)
== END 2021-09-19 11:30 | disposition home or self-care (01) ==
LOC: SED 10:04 → INTOOBSV 13:50 → STU 13:50
PROVIDERS: ADMIT Student in an Organized Health Care Education/Training Program; ATTEND Student in an Organized Health Care Education/Training Program
DX: G40.909 Epilepsy, unspecified, not intractable, without status epilepticus (principal); Z20.822 Contact with and (suspected) exposure to COVID-19; E78.5 Hyperlipidemia, unspecified; E87.1 Hypo-osmolality and hyponatremia; E87.2 Acidosis; K21.9 Gastro-esophageal reflux disease without esophagitis; I10 Essential (primary) hypertension; E78.00 Pure hypercholesterolemia, unspecified
CPT/HCPCS: 36415 ×2; 70450; 71045; 76376; 80048; 80053; 80185; 82550; 83605; 83735; 84100; 85025 ×2; 87426; 93005; 97163; 99285; G0378 ×2

== ENCOUNTER 2022-07-28 08:01 | Emergency (ER) | payer BC ==
[~2022-07-28] VITALS: Ht 193 cm; Wt 68.0 kg
[~2022-07-28 08:01] MED LIST changes: +LEVE500T21 PO; -PHEN100C4 PO; +PHEN50TA PO
[2022-07-28 08:21] VITALS: BP_SYST 142
[2022-07-28] MEDS ORDERED: levETIRAcetam 1,000 MG in NS 90 ML IV ONE (08:30)
[2022-07-28 09:29] LABS: BASOPHILS # (AUTO) 0.1 K/uL (0.0-0.2); BASOPHILS % (AUTO) 1.2 % (0.0-2.0); EOSINOPHILS # (AUTO) 0.1 K/uL (0.0-0.4); EOSINOPHILS % (AUTO) 1.8 % (0.0-4.0); HEMATOCRIT 47.9 % (36-54); HEMOGLOBIN 15.8 g/dL (14.0-18.0); LYMPHOCYTES % (AUTO) 16.9 % (20.5-51.5); MEAN CORPUSCULAR HEMOGLOBIN 33 pg (27-31); MEAN CORPUSCULAR HGB CONC 33 % (32-36); MEAN CORPUSCULAR VOLUME 101 fL (79.0-98.0); MONOCYTES # (AUTO) 0.4 K/uL (0.0-1.0); MONOCYTES % (AUTO) 7.4 % (1.7-9.3); NEUTROPHILS # (AUTO) 4.4 K/uL (1.8-7.7); NEUTROPHILS % (AUTO) 72.7 % (40.0-70.0); PLATELET COUNT (AUTO) 250 K/uL (130-430); RED BLOOD CELL COUNT(AUTO) 4.75 MIL/uL (4.2-6.2); RED CELL DISTRIBUTION WIDTH 14.1 % (9.0-15.0)
[2022-07-28 09:44] LABS: CALCIUM 8.6 mg/dL (8.4-11.0); CREATININE 1.14 mg/dL (0.55-1.30)
[2022-07-28] MEDS ORDERED: IBUPROFEN 800 MG TABLET PO ONE (09:45)
[2022-07-28 09:49] LABS: ALBUMIN 3.7 g/dL (3.4-4.8); PHENYTOIN (DILANTIN) 24.9 ug/mL (10.0-20.0); TOTAL BILIRUBIN 0.2 mg/dL (0.0-1.0)
[2022-07-28 10:33] VITALS: BP_SYST 137
[2022-07-28] MEDS ORDERED: LEVE500T9 PO (10:34)
== END 2022-07-28 11:00 | disposition home or self-care (01) ==
LOC: SED 08:01
DX: G40.909 Epilepsy, unspecified, not intractable, without status epilepticus (principal); J44.9 Chronic obstructive pulmonary disease, unspecified; K21.9 Gastro-esophageal reflux disease without esophagitis; I10 Essential (primary) hypertension
CPT/HCPCS: 99284; 96365; 80053; 80185; 85025; 36415; 93005; 83605; J1953